=== PATIENT | male | born 1960 | race Caucasian/White ===

== ENCOUNTER → 2018-11-19 | Outpatient (REF) | payer OTHER ==
[~2018-11-19] MED LIST: BETAXOLOL 0.5% OP; CO GESIC PO; EFFEXOR75 MG PO; HYDROCODONE/ACE1 TAB PO; LIPITOR40 MG PO; LISINOP/HCTZ1 TAB PO; LISINOPRIL/HYDR1 TA1 PO; METO50TA52; NORCO1 TAB PO; PENICILLN VK500 MG PO; RESTORIL15 M1 PO; SYNTHROID125 MCG PO; TOPROL XL25 M1 PO; TRAMADOL HCL50 MG PO; UNITHROID150 MCG PO; VOLTAREN1%GEL TOP; ZOLOFT100 MG PO; ZOLOFT25 MG PO; ZYRTEC10 M5 PO
[2018-11-19 08:08] VITALS: BP 137/85
== END | disposition home or self-care (01) | DRG 951 ==
LOC: PAIN/MGT 07:32
PROVIDERS: ATTEND Anesthesiology Pain Medicine
DX: Z09 Encounter for follow-up examination after completed treatment for conditions other than malignant neoplasm (principal)

== ENCOUNTER 2023-06-12 07:32 | Emergency (ER) | payer BC ==
[~2023-06-12] VITALS: Ht 182.9 cm; Wt 99.7 kg
[2023-06-12] VITALS (18 sets, daily range): BP systolic 143–206; BP diastolic 74–105
[~2023-06-12 07:32] MED LIST changes: +ALER-CAP25 MG PO; +LORTAB 1010 MG PO
[2023-06-12 08:46] LABS: URINE BILIRUBIN - DIPSTICK Negative (NEGATIVE); URINE BLOOD DIPSTICK Trace-intact (NEGATIVE); URINE GLUCOSE - DIPSTICK Negative (NEGATIVE); URINE KETONE Negative (NEGATIVE); URINE LEUK ESTERASE Negative (NEGATIVE); URINE NITRITE - DIPSTICK Negative (Negative); URINE PROTEIN - DIPSTICK Negative (NEG-TRACE); URINE UROBILINOGEN - DIPSTICK 0.2 E.U./dL (0.2)
[2023-06-12 08:52] LABS: URINE COLOR Yellow
[2023-06-12 09:07] LABS: BASO% 0.5 % (0-3); EOS% 0.9 % (0-8); HEMATOCRIT 41.2 % (39.0-50.0); HEMOGLOBIN 13.7 g/dl (14.0-18.0); IMMATURE GRANULOCYTES 0.6 % (0.0-5.0); LYMPH% 24.6 % (15-41); MEAN CORPUSCULAR HGB 32.9 pG CALC (26.0-32.0); MEAN CORPUSCULAR HGB CONC 33.3 g/dL CAL (32.0-36.0); MONO% 9.4 % (2-13); NEUT# 8.21 thou/uL (1.82-7.42); RED BLOOD COUNT 4.16 mill/uL (4.70-6.10); RED CELL DISTRI WIDTH 12.6 % (11.5-15.5)
[2023-06-12 09:12] LABS: ALBUMIN 4.4 g/dL (3.2-5.0); ALKALINE PHOSPHATASE 87 u/l (38-126); ANION GAP 11 (6-22 (CALC)); BILIRUBIN, TOTAL 0.7 mg/dL (0.2-1.3); BUN 8 mg/dL (8-23); BUN/CREATININE RATIO 8 (12-20 (CALC)); CARBON DIOXIDE 26 mmol/l (22-30); CHLORIDE 104 mmol/l (95-108); CREATININE 1.1 mg/dL (0.7-1.3); GFR FOR AFR.AMER. > 60 ML/MIN (>=60 (CALC)); GFR OTHER RACES > 60 ML/MIN (>=60 (CALC)); POTASSIUM 3.4 mmol/l (3.5-5.1); SGOT/AST 31 u/l (19-48); SODIUM 138 mmol/l (137-146); TOTAL PROTEIN 7.7 g/dL (6.3-8.2)
[2023-06-12] MEDS ORDERED: TAMSULOSIN0.4 MG PO (11:17)
== END 2023-06-12 11:40 | disposition home or self-care (01) | DRG 696 ==
LOC: ED 07:32
PROVIDERS: Emergency Medicine
DX: R33.9 Retention of urine, unspecified (principal); E87.6 Hypokalemia; I10 Essential (primary) hypertension; F17.210 Nicotine dependence, cigarettes, uncomplicated